=== PATIENT | female | born 1940 ===

== ENCOUNTER 2016-09-28 13:58 | Emergency (ER) | payer MEDICARE, OTHER ==
[~2016-09-28 13:58] MED LIST: 8 HOUR650 MG PO; AMB10 PO; ASAB PO; CARD120 PO; CARDCD120 PO; CARDCD180 PO; DSS PO; EFFIENT10 PO; GLUCPH PO; HALF81 PO; I40 PO; LIPITOR20 PO; MULTIVIT/MIN PO; MYRBETRIQ25 MG PO; NEUR400 PO; NEXIUM20 M1 PO; NEXIUM40 PO; NORV25 PO; OTC STOOL SOFTENER PO; P20 PO; PERCOCET1 TA4 PO; PHENADOZ25 MG RE; PLAVIX PO; PRIN20 PO; PROZAC PO; REG5 PO; REST15 PO; ROXICODONE15 MG PO; SUCR PO; ULTRAM50 PO; ZANTAC150 MG PO; ZESTRIL20 MG PO
[2016-09-28 14:13] LABS: BASOPHILS 0.5 %; BASOPHILS ABSOLUTE 0.03 10/3/uL (0.0-0.16); EOSINOPHILS 1.7 %; EOSINOPHILS ABSOLUTE 0.11 10/3/uL (0.0-0.53); ER CBC TAT 0 Hrs 05 Mins; HEMATOCRIT 39.8 % (36.0-48.0); HEMOGLOBIN 13.1 g/dL (12.0-16.0); LYMPHOCYTES ABSOLUTE 2.43 10/3/uL (0.67-4.30); MEAN CORPUS HGB CONC 32.9 g/dL (32.0-36.0); MEAN CORPUSCULAR HEMOGLOB 32.6 pg (26.0-34.0); MEAN PLATELET VOLUME 8.3 fL (9.2-13.0); MONOCYTES 8.1 %; MONOCYTES ABSOLUTE 0.53 10/3/uL (0.21-1.20); NEUTROPHILS 52.7 %; NEUTROPHILS ABSOLUTE 3.46 10/3/uL (2.02-8.40); PLATELET COUNT 225 10/3/uL (150-400); RED CELL COUNT 4.02 10/6/uL (4.0-5.6); WHITE BLOOD CELLS 6.6 10/3/uL (4.5-10.5)
[2016-09-28 14:16] LABS: MANUAL DIFF NO %
[2016-09-28 14:29] LABS: A/G RATIO 0.9 (0.7-1.9); ALBUMIN 3.3 G/DL (3.5-5.0); ALKALINE PHOSPHATASE 85 U/L (45-117); CALCIUM, SERUM 8.9 MG/DL (8.5-10.4); CHLORIDE, SERUM 105 MMOL/L (96-112); CREATININE 1.65 MG/DL (0.55-1.02); GFR AFRICAN AMERICAN 34 ML/MIN (>=60); GFR NON AFRICAN AMERICAN 30 ML/MIN (>=60); GLOBULIN 3.8 G/DL (2.5-4.1); GLUCOSE, SERUM 100 MG/DL (60-99); POTASSIUM, SERUM 4.3 MMOL/L (3.5-5.3); SGOT(AST) 23 U/L (5-40); SGPT(ALT) 25 U/L (5-65); SODIUM, SERUM 143 MMOL/L (135-148); TOTAL BILIRUBIN 0.2 MG/DL (0-1.2); TOTAL PROTEIN 7.1 G/DL (6.0-8.5)
[2016-09-28 14:31] LABS: BUN (BLOOD UREA NITROGEN) 13 MG/DL (6-23); CO2 (CARBON DIOXIDE) 29 MMOL/L (24-34)
[2016-09-28 15:16] LABS: ASCORBIC ACID (UR NOT ORDER) 40 (NEG); BILIRUBIN, URINE NEGATIVE (NEG); ER URINALYSIS TAT 0 Hrs 12 Mins; KETONE, URINE NEGATIVE (NEG); LEUKOCYTE ESTERASE(NOT OR TRACE (NEG); NITRITE (URINE) NEG (NEG); WBC (NOT ORDERED) (RFLEX) 3 (0-5)
[2017-03-08] MEDS ORDERED: BUTRANS1 EACH TOP (17:16)
[2017-03-08] MEDS ORDERED: ASTELIN NAS (17:18)
[2017-03-08] MEDS ORDERED: LOP25 PO (17:19)
[2017-03-08] MEDS ORDERED: PRILOSEC40 MG PO (17:26)
[2017-03-08] MEDS ORDERED: 8 HOUR650 MG PO (17:27)
== END 2016-09-28 21:43 | disposition home or self-care (01) ==
LOC: ER 13:58
PROVIDERS: Hospitalist
DX: R10.11 Right upper quadrant pain (principal); E78.5 Hyperlipidemia, unspecified; K21.9 Gastro-esophageal reflux disease without esophagitis; I12.9 Hypertensive chronic kidney disease with stage 1 through stage 4 chronic kidney disease, or unspecified chronic kidney disease; N18.9 Chronic kidney disease, unspecified; I25.10 Atherosclerotic heart disease of native coronary artery without angina pectoris; Z88.0 Allergy status to penicillin; Z88.2 Allergy status to sulfonamides; Z88.5 Allergy status to narcotic agent; Z88.8 Allergy status to other drugs, medicaments and biological substances; Z79.52 Long term (current) use of systemic steroids; Z79.82 Long term (current) use of aspirin; Z79.899 Other long term (current) drug therapy
CPT/HCPCS: 74176; 80053; 81001; 83690; 85025; 96374; 99284; A9270-GY; J1170